=== PATIENT | female | born 2000 | race African-American/Black ===

== ENCOUNTER 2024-12-25 21:51 | Emergency (ER) | payer SELFPAY ==
[~2024-12-25] VITALS: Ht 154.9 cm; Wt 50.9 kg
[2024-12-25 23:27] LABS: BASOPHILS % 0.2 % (0.0-2.0); EOSINOPHILS % 0.1 % (0.0-5.0); HEMATOCRIT. 41.3 % (36.0-48.0); HEMOGLOBIN. 14.0 g/dL (12.0-16.0); LYMPHOCYTES % 14.0 % (20.0-50.0); MEAN PLATELET VOLUME 7.6 fl (7.4-10.4); MONOCYTES % 10.3 % (2.0-8.0); NEUTROPHILS % 75.4 % (40.0-76.0); PLATELET 321 x1000/uL (130-400); RED BLOOD CELL COUNT 4.64 mill/uL (4.2-5.4); RED CELL DISTRIBUTION WIDTH 12.6 % (11.6-14.6)
[2024-12-25 23:43] LABS: CREATININE 1.0 mg/dL (0.6-1.0); UREA NITROGEN BLOOD 12 mg/dL (9-23)
[2024-12-25 23:44] LABS: ETHANOL BLOOD < 10 mg/dL (<10)
[2024-12-25 23:45] LABS: ASPARTATE AMINOTRANSFERASE 39 IU/L (<34); BILIRUBIN DIRECT 0.4 mg/dL (<=3.0)
[2024-12-25 23:46] LABS: BILIRUBIN TOTAL 1.1 mg/dL (0.1-1.0); PROTEIN TOTAL 8.4 g/dL (6.0-8.3)
[2024-12-25] MEDS: LORAZEPAM 2MG/ML UD SYRINGE IM SCH (23:51)
[2024-12-25] MEDS: DIPHENHYDRAMINE 50MG/ML VIAL IM ONE (23:52)
[2024-12-26 00:07] LABS: CLARITY URINE CLEAR (CLEAR); COLOR URINE YELLOW (YELLOW); GLUCOSE URINE NEGATIVE (NEGATIVE); KETONES URINE 4+ (NEGATIVE); LEUKOCYTE ESTERASE URINE NEGATIVE (NEGATIVE); NITRITE URINE NEGATIVE (NEGATIVE); OCCULT BLOOD URINE NEGATIVE (NEGATIVE); PH URINE 5.5 (4.5-8.0); PROTEIN URINE 1+ (NEGATIVE); SPECIFIC GRAVITY URINE 1.031 (1.005-1.030); UROBILINOGEN URINE 1.0 E.U./dL (0.2-1.0)
[2024-12-26 00:22] LABS: *AMPHETAMINES SCREEN URINE NEGATIVE (NEGATIVE); *BENZODIAZEPINES SCREEN URINE NEGATIVE (NEGATIVE)
[2024-12-26 00:23] LABS: *BARBITURATES SCREEN URINE NEGATIVE (NEGATIVE); *COCAINE SCREEN URINE NEGATIVE (NEGATIVE); CANNABINOID URINE SCREEN NEGATIVE (NEGATIVE); ECSTASY MDMA SCREEN URINE NEGATIVE (NEGATIVE); METHADONE URINE SCREEN NEGATIVE (NEGATIVE); OPIATES URINE SCREEN NEGATIVE (NEGATIVE); PHENCYCLIDINE URINE SCREEN NEGATIVE (NEGATIVE)
[2024-12-26 00:38] LABS: HCG SCREEN NEGATIVE
[2024-12-26 04:06] LABS: BACTERIA URINE NONE SEEN; RBC URINE 0-2 /hpf (0-2); SQUAMOUS EPITHELIAL CELL URINE NONE SEEN /lpf (RARE/1+); WBC URINE 0-2 /hpf (0-2)
[2024-12-26] MEDS ORDERED: HYDROXYZINE 25MG TABLET PO PRN (11:45)
[2024-12-26] MEDS: OLANZAPINE 10 MG/VIAL IM ONE (12:19)
[2024-12-26] MEDS: HALOPERIDOL LACTATE 5MG/ML VIAL IM ONE (12:19)
[2024-12-26 13:40] VITALS: O2SAT 100
[2024-12-26 17:29] VITALS: BP 119/77; PULSE 81; RESP 16; TEMP 36.6; O2SAT 99
[2024-12-26] MEDS ORDERED: QUETIAPINE FUMARATE 25MG TABLET PO SCH (21:00)
[2024-12-26] MEDS ORDERED: TRAZODONE HCL 50MG TABLET PO SCH (21:00)
== END 2024-12-26 17:59 ==
LOC: ER 22:06
DX: R45.851 Suicidal ideations (principal); R46.2 Strange and inexplicable behavior; Z20.822 Contact with and (suspected) exposure to COVID-19; Z79.899 Other long term (current) drug therapy
CPT/HCPCS: 80076; 80305; 80048; 81003; 80307; 80329; 80320; 84703; 85025; 36415; 96372 ×2; 99285; 87426; J1200; J2060; J3490; J1630; Z7610 ×2; G0480